=== PATIENT | female | born 1990 | race Caucasian/White ===

== ENCOUNTER 2017-09-06 17:56 | Emergency (ER) | payer OTHER, MEDICAID, SELFPAY ==
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
[2017-09-06 19:22] VITALS: BP 140/98; PULSE 124; RESP 20; TEMP 36.3; O2SAT 100; BMI 28.2
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
[2017-09-06 20:28] VITALS: BP 135/86; PULSE 100; RESP 20; TEMP 36.4; O2SAT 100
== END 2017-09-06 20:29 | disposition home or self-care (01) ==
PROVIDERS: Emergency Provider Nurse Practitioner Family; PCP Family Medicine
DX: O26.892 Other specified pregnancy related conditions, second trimester (principal); S90.31XA Contusion of right foot, initial encounter; V49.9XXA Car occupant (driver) (passenger) injured in unspecified traffic accident, initial encounter; O99.332 Smoking (tobacco) complicating pregnancy, second trimester; Z3A.22 22 weeks gestation of pregnancy
CPT/HCPCS: 73610; 73630; 99202

== ENCOUNTER 2018-01-21 10:14 | Inpatient (IN) ==
--- NOTE | 2018-01-21 11:11 | History & Physical Report ---
OB - H&P: HPI Antepartum - History of Present Illness Chief complaint: Contractions History of present illness: She is a 19-year-old 4 para 3 who is 40+ weeks gestational age. She has been seen once at 26 weeks and an ultrasound showed that she was due on January 12. From her last menstrual period she will on January 17. She has had no care. She is hepatitis C positive. She did snort when this morning. She is a heroin addict. Her nonstress test is nonreactive and she is having a few D cells. We will go ahead with a repeat section as soon as possible. - History of Present Criteria for establishing EDC:: based on 2nd trimester US only care: none Ultrasounds: normal mid trimester US Obstetrical complications: previous , other Medical complications: other Narrative: She is hepatitis C positive. She is a heroin abuser. She has had no care. She is a heavy smoker. [facility] History I have reviewed the patient's past medical history: Yes Medical History: Denies:: Cancer, Diabetes Mellitus Type 1, Diabetes Mellitus Type 2, Hypertension, MRSA Other Surgeries: Yes: Amputation: No - *Social History Smoking Status: Current every day smoker Tobacco Type: cigarettes Alcohol Intake: never Review of Systems - Review of Systems Review of systems:: pertinent systems reviewed and negative unless documented below Meds Home Medications Medication Instructions Recorded Confirmed Type No Known Home Medications 09/06/17 09/06/17 History Allergies Allergy/AdvReac Type Severity Reaction Status Date / Time No Known Allergies Allergy Verified 09/06/17 19:34 OB - H&P: Exam - Constitutional mild distress - Routine Neck Exam Present: supple - Routine Respiratory Exam Comments: She is breathing normally. OB - A/P Antepartum (1) Hepatitis C antibody test positive Current visit: Yes Status: Acute (2) Insufficient care Current visit: Yes Status: Acute (3) Heroin abuse affecting Current visit: Yes Status: Acute (4) Tobacco abuse Current visit: Yes Status: Acute (5) Previous section complicating Current visit: Yes Status: Acute (6) Sterilization Current visit: Yes Status: Acute - Additional Plan Planning to breastfeed?: No Plan: other Additional Information:: We will go ahead with a repeat lower segment transverse section and bilateral salpingectomy. We discussed the risks of surgery that includes bleeding, infection, injuries to other structures. We discussed the irreversibility of bilateral salpingectomy. I also spoke to her significant other about a tubal ligation and he agreed that she should have her tubes removed. All questions were answered and consents were signed.
[2018-01-21 11:14] LABS: Basophils % 0.2 % (0.1-2.0); Eosinophils % 0.2 % (0.1-12.0); Hematocrit 40.6 % (37.0-47.0); Hemoglobin 13.2 g/dL (12.2-16.2); Lymphocytes # 2.2 K/mm3 (0.7-4.5); Lymphocytes % 12.6 K/mm3 (10-50); Mean Corpuscular HGB Conc 32.6 g/dL (31.8-35.4); Mean Corpuscular Hemoglobin 30.3 pg (27.0-31.2); Mean Corpuscular Volume 92.8 fl (81-99); Mean Platelet Volume 8.6 fl (7.4-10.4); Monocytes # 0.6 K/mm3 (0.1-1.0); Monocytes % 3.4 % (1.7-9.3); Neutrophils # 14.6 K/mm3 (1.8-7.8); Neutrophils % 83.6 % (37.0-80.0); Platelet Count 353 K/mm3 (142-424); Red Blood Count 4.38 M/mm3 (4.20-5.40); Red Cell Distribution Width 14.3 % (11.5-17.5); White Blood Count 17.5 K/mm3 (4.8-10.8)
[2018-01-21 11:44] LABS: Lymphocytes % 19 % (10-50); Monocytes % 3 % (2-9); Neutrophils % 75 % (42-76); Total Cells Counted 100
[2018-01-21 11:45] LABS: RBC Morphology Normal
--- NOTE | 2018-01-21 12:37 | Operative Note ---
Date of procedure: 01/21/18 Pre-op Diagnosis:: Term , insufficient care, maternal drug abuse, hepatitis C positive, desire for sterilization Post-op Diagnosis:: Term , insufficient care, previous section, hepatitis C positive, desire for sterilized Procedure performed:: Repeat lower segment section and bilateral salpingectomy Surgeon:: Benigno Dhillon MD Seat Builder(s):: Dr. Denis ACQUISITION ADVISOR:: Lalito Lock Anesthesia: spinal Estimated blood loss (mL): 600 Clinical Note:: She is a 27-year-old 4 para 3 who has had no care. She came into labor and delivery having contractions. She did have an ultrasound at 26 weeks in [place] that confirmed her dates. Her due date was January 12. She is a heroin abuser and admits to snorting heroin this morning. She also expressed desire for sterilization. Risks and benefits of surgery were discussed with the patient and her significant other prior to surgery. Operative findings:: She delivered a liveborn male child at 11:36 AM on the morning of January 21, 2018. The baby had Apgars of 9 at 1 minute and 7 at 5 minutes. There was thick meconium. PH was 7.35. Ovaries and tubes appeared normal. Operative note:: She was taken to the operating room where spinal anesthesia was found be adequate. She was prepped and draped in normal sterile fashion in the supine position with a leftward tilt. A Mukherjee catheter was in the bladder. A Pfannenstiel skin incision was made with knife then carried through to the underlying layer of fascia with cautery. The fascia was opened in the midline with cautery and extended laterally using Mckenzie scissors. [place] clamps were applied to the superior aspect of the fascial incision which was tented up and the underlying rectus muscles dissected off using cautery. The Bisi clamps were then applied to the inferior aspect of the fascial incision which in a similar fashion was tented up and the underlying rectus muscles dissected off using cautery. The rectus muscles were then in the midline, the peritoneum identified, and entered sharply with Metzenbaum scissors. This incision was then extended superiorly and inferiorly with cautery. We had good visualization of the bladder inferiorly. The bladder peritoneum was then opened in the midline and extended laterally using Metzenbaum scissors. A bladder flap was created digitally. The lower blade of the Almond was inserted so as to push the bladder out of the way. Transverse incision was made through the uterine muscle to the amnion. This incision was then extended laterally using fingers traction. The amnion was entered sharply with knife. There was thick meconium. The 's head was then delivered atraumatically. Using a DeLee suction we suctioned the baby's oropharynx and nasopharynx. This was followed by the anterior shoulder and the rest of the 's body atraumatically. The infant was then handed off to Dr. Barbour assigned Apgars of 9 at 1 minute and 7 at 5 minutes. We then obtained cord blood as well as cord pH. The pH was 7.35. Using gentle traction on the cord and countertraction on the fundus I was able to easily deliver the placenta intact. It had a normal three-vessel cord. The uterus was then cleared of clots and debris and exteriorized from the abdominal cavity. The uterine incision was then closed using running 0 Vicryl suture in a locked fashion. A second layer of the same suture was used to imbricate the first layer. The bladder peritoneum was then closed using running 2-0 Vicryl suture in a locked fashion. We then performed a bilateral salpingectomy by first grasping the distal end of the right tube and using cautery we cauterized along the mesosalpinx. We then cauterized at the cornua and the tube was completely removed. This is summary performed on the patient's left side. It was some bleeding on the left side and using both sutures, free ties and surgical clips I was able to obtain excellent hemostasis. I left a large piece of Surgicel as well. The gutters and cul-de-sac were then cleared of clots and debris and the uterus was returned the abdominal cavity. Once again hemostasis was assured. The peritoneum was grasped with Aleena clamps and closed using running #1 Vicryl suture. The rectus muscles were then reapproximated using running 1 Vicryl suture. The fascia was closed using running #1 Vicryl suture. The subcutaneous tissues were then irrigated with warm water followed by closure Jamal's fascia using running 2-0 Monocryl suture. The skin was closed with angelia. Then cleaned the skin with Hibiclens. Sterile dressings were applied. She tolerated the procedure well and was taken to the recovery room in excellent condition. All sponges instrument and needle counts were correct. Estimate a blood loss was approximately 600 mL. Condition: stable Disposition: PACU Specimens:: Products of the option. Placenta Complications:: None
--- NOTE | 2018-01-21 12:52 | Progress Note ---
[facility] Anesthesia Checklist - Patient Identification Patient Identification: Arm Band, Verbal (Name & ) - Structural Data Admitted From: Home Planned Operative Procedure/s: c section Consent for Planned Operative Procedure(s) Verified: Yes Verified Documents: Surgical Consent - NPO Status Verified Time NPO: 00:00 - Additional verifications Patient : Yes Anesthesia Reactions: No Hx Blood Transfusions: No Blood Transfusion Reaction: No Cephalosporin Allergy: No Previous Colonoscopy: No - Cardiovascular Assessment Heart Sounds: S1 & S2 Pulse Strength: Baseline Pulse Rhythm: Regular Peripheral Edema: No - Airway Assessment C-Spine Mobility Assessed: Yes TMJ Mobility Assessed: Yes Dentition: Poor Dentition - Neurological Assessment Level of Consciousness: Awake, Alert, Appropriate Hx Seizures: No Numbness or tingling in extremities: No - Anesthesia Plan Anesthesia Risk discussed: Yes Anesthesia Plan: Verified ASA Class: II Anesthesia Type: Spinal [facility] Anesthesia HX I have reviewed the patient's past medical history: Yes Medical History: Denies:: Cancer, Diabetes Mellitus Type 1, Diabetes Mellitus Type 2, Hypertension, MRSA Other Surgeries: Yes: Amputation: No
--- NOTE | 2018-01-21 12:53 | Progress Note ---
[facility] Anesthesia Record Part I Intake, IV Amount: 2,400 Estimated blood loss (mL): 600 Urine output (mL): 50 Blood Products used (#): none Blood Pressure: 164/84 SaO2: 100 Pulse Rate: 56 Respiratory Rate: 18 Temperature: 97.0 F Patient is:: Awake, Stable
--- NOTE | 2018-01-21 12:53 | Progress Note ---
[facility] Anesthesia Record Part II Discharge Time: 13:19 Destination: Obstetric Gynecology Dept PACU nurse assessment reviewed?: Yes Patient Condition:: Good Anesthesia Complications:: None
[2018-01-21 14:50] LABS: Basophils % 0.1 % (0.1-2.0); Eosinophils # 0.1 K/mm3 (0.0-0.4); Eosinophils % 0.7 % (0.1-12.0); Hematocrit 38.7 % (37.0-47.0); Hemoglobin 12.7 g/dL (12.2-16.2); Lymphocytes # 1.1 K/mm3 (0.7-4.5); Lymphocytes % 5.1 K/mm3 (10-50); Mean Corpuscular HGB Conc 32.8 g/dL (31.8-35.4); Mean Corpuscular Hemoglobin 30.2 pg (27.0-31.2); Mean Corpuscular Volume 92.1 fl (81-99); Mean Platelet Volume 8.5 fl (7.4-10.4); Monocytes # 0.4 K/mm3 (0.1-1.0); Monocytes % 1.8 % (1.7-9.3); Neutrophils # 19.9 K/mm3 (1.8-7.8); Neutrophils % 92.3 % (37.0-80.0); Platelet Count 262 K/mm3 (142-424); Red Cell Distribution Width 14.1 % (11.5-17.5); White Blood Count 21.6 K/mm3 (4.8-10.8)
[2018-01-21 18:29] LABS: Microscopic, Urine URINE MICROSCOPIC (MICROSCOPIC)
[2018-01-21 18:35] LABS: Appearance,Urine CLEAR (Clear); Bilirubin,Urine Negative (Negative); Blood, Urine Negative (Negative); Color,Urine YELLOW (Yellow); Glucose,Urine (UA) Negative (Negative); Ketones,Urine Negative (Negative); Leukocyte Esterase,Urine Negative (Negative); Protein,Urine Negative (Negative); Urobilinogen,Urine 0.2 EU/dl (0.2)
[2018-01-21 18:43] LABS: Amphetamine/Metha Screen,Urine Positive ng/mL (<1000); Barbiturates Screen,Urine Negative ng/mL (<200); Benzodiazepines Screen,Urine Negative ng/mL (<200); Cannabinoid Screen,Urine Negative ng/mL (<50); Cocaine Screen,Urine Negative ng/mL (<300); Methadone Screen,Urine Negative ng/mL (<300); Opiate Screen,Urine Positive ng/mL (<300); Phencyclidine Screen,Urine Negative ng/mL (<25)
[2018-01-21 18:46] LABS: Bacteria,Urine Trace /lpf; RBC,Urine Occasional #/hpf (0-3); WBC,Urine Occasional #/hpf (0-3)
[2018-01-22 06:47] LABS: Hematocrit 32.4 % (37.0-47.0)
[2018-01-22 07:00] LABS: Hemoglobin 10.5 g/dL (12.2-16.2)
--- NOTE | 2018-01-22 11:15 | Discharge Summary ---
General - General Admission date:: 01/21/18 Discharge date: 01/22/18 HPI HPI: She is a 27-year-old 4 now para 4 who had no care throughout her . She came in in active labor and was having contractions every 2 minutes. She was 40+ weeks gestational age from ultrasound at 26 weeks. She has had previous sections and as result of that was offered repeat lower segment transverse section. She also expressed desire for sterilization and as result of that we formed a bilateral appendectomy at the time of her . She is hepatitis C positive. She is an IV drug abuser. She snorted heroin the morning she came into labor and delivery. Hospital Course Hospital Course: On January 21, 2018 she underwent a repeat lower segment transverse section and bilateral salpingectomy. She delivered a liveborn male child at 11: 36 AM. The baby weighed 7 lbs. 9 oz. and was 19-1/2 inches long. He had Apgars of 9 at 1 minute and 7 at 5 minutes. There was thick meconium. The baby has been transferred to [facility] for possible meconium aspiration. He also required Narcan 2. She has done well and has remained afebrile throughout her hospitalization. She is eating and drinking and ambulating. Her pain is reasonably well controlled. She would like to go home on her first postoperative day. We explained her that she may stay for another couple of days but she is adamant that she would like to go home. She is in a tent with her boyfriend. She has no fixed address. She is discharged home to follow-up with me in approximately days time. We will see her in the office to remove her angelia. Have given her a prescription for Dilaudid 4 mg to take X hours #12 tablets. Her condition on discharge is stable. Objective Vital signs: Temp Pulse Resp BP Pulse Ox 97.0 F L 57 L 14 143/68 100 01/21/18 14:05 01/21/18 14:05 01/21/18 14:05 01/21/18 14:05 01/21/18 14:05 no acute distress Results Labs on day of discharge: Labs from last 24 hours 01/22/18 01/21/18 01/21/18 06:00 18:00 18:00 WBC RBC Hgb 10.5 L D Hct 32.4 L MCV MCH MCHC RDW Plt Count MPV Neut % (Auto) Lymph % (Auto) [place] % (Auto) Eos % (Auto) Baso % (Auto) Neut # (Auto) Lymph # (Auto) [place] # (Auto) Eos # (Auto) Baso # (Auto) Total Counted Neutrophils % (Manual) Band Neutrophils % Lymphocytes % (Manual) Atypical Lymphs % Monocytes % (Manual) Platelet Estimate RBC Morphology Cord ABG pH Urine Color Yellow Urine Appearance Clear Urine pH 7.0 Ur Specific [place] 1.010 Urine Protein Negative Urine Glucose (UA) Negative Urine Ketones Negative Urine Blood Negative Urine Nitrate Negative Urine Bilirubin Negative Urine Urobilinogen 0.2 Ur Leukocyte Esterase Negative Urine RBC Occasional Urine WBC Occasional Ur Squamous Epith Cells None Urine Bacteria Trace Urine Opiates Screen Positive H Urine Methadone Screen Negative Ur Barbituates Screen Negative Ur Phencyclidine Scrn Negative Ur Amphetamines Screen Positive H U Benzodiazepines Scrn Negative Urine Cocaine Screen Negative U Marijuana (THC) Screen Negative Blood Type Antibody Screen 01/21/18 01/21/18 01/21/18 14:42 11:48 10:40 WBC 21.6 H* RBC 4.20 Hgb 12.7 Hct 38.7 MCV 92.1 MCH 30.2 MCHC 32.8 RDW 14.1 Plt Count 262 D MPV 8.5 Neut % (Auto) 92.3 H Lymph % (Auto) 5.1 L [place] % (Auto) 1.8 Eos % (Auto) 0.7 Baso % (Auto) 0.1 Neut # (Auto) 19.9 H Lymph # (Auto) 1.1 [place] # (Auto) 0.4 Eos # (Auto) 0.1 Baso # (Auto) 0.0 Total Counted Neutrophils % (Manual) Band Neutrophils % Lymphocytes % (Manual) Atypical Lymphs % Monocytes % (Manual) Platelet Estimate RBC Morphology Cord ABG pH 7.35 Urine Color Urine Appearance Urine pH Ur Specific [place] Urine Protein Urine Glucose (UA) Urine Ketones Urine Blood Urine Nitrate Urine Bilirubin Urine Urobilinogen Ur Leukocyte Esterase Urine RBC Urine WBC Ur Squamous Epith Cells Urine Bacteria Urine Opiates Screen Urine Methadone Screen Ur Barbituates Screen Ur Phencyclidine Scrn Ur Amphetamines Screen U Benzodiazepines Scrn Urine Cocaine Screen U Marijuana (THC) Screen Blood Type O Positive Antibody Screen Negative 01/21/18 10:40 WBC 17.5 H RBC 4.38 Hgb 13.2 Hct 40.6 MCV 92.8 MCH 30.3 MCHC 32.6 RDW 14.3 Plt Count 353 MPV 8.6 Neut % (Auto) 83.6 H Lymph % (Auto) 12.6 [place] % (Auto) 3.4 Eos % (Auto) 0.2 Baso % (Auto) 0.2 Neut # (Auto) 14.6 H Lymph # (Auto) 2.2 [place] # (Auto) 0.6 Eos # (Auto) 0.0 Baso # (Auto) 0.0 Total Counted 100 Neutrophils % (Manual) 75 Band Neutrophils % 1.0 Lymphocytes % (Manual) 19 Atypical Lymphs % 2.0 Monocytes % (Manual) 3 Platelet Estimate Normal RBC Morphology Normal Cord ABG pH Urine Color Urine Appearance Urine pH Ur Specific [place] Urine Protein Urine Glucose (UA) Urine Ketones Urine Blood Urine Nitrate Urine Bilirubin Urine Urobilinogen Ur Leukocyte Esterase Urine RBC Urine WBC Ur Squamous Epith Cells Urine Bacteria Urine Opiates Screen Urine Methadone Screen Ur Barbituates Screen Ur Phencyclidine Scrn Ur Amphetamines Screen U Benzodiazepines Scrn Urine Cocaine Screen U Marijuana (THC) Screen Blood Type Antibody Screen DS: Diagnosis - Discharge Diagnosis (1) Hepatitis C antibody test positive Status: Acute (2) Insufficient care Status: Acute (3) Heroin abuse affecting Status: Acute (4) Tobacco abuse Status: Acute (5) Previous section complicating Status: Acute (6) Sterilization Status: Acute Discharge Plan - Patient Discharge Instructions ACTIVITY: No heavy lifting DIET: continue same diet - Follow up Plan Disposition: Home, Self-Fdc Medications: Home Medications Medication Instructions Recorded Confirmed Type No Known Home Medications 09/06/17 09/06/17 History Prescriptions/Medication Reconciliation: New Hydromorphone HCl [Dilaudid 4mg Tab] 4 mg PO Q6H PRN #20 tab PRN Reason: Moderate To Severe Pain Continue No Known Home Medications
== END 2018-01-22 15:10 | disposition home or self-care (01) ==
LOC: OBOUT 10:14 → OB 10:16
PROVIDERS: ADMIT Nurse Practitioner Obstetrics & Gynecology; ATTEND Nurse Practitioner Obstetrics & Gynecology